=== PATIENT | male | born 1970 | race Caucasian/White ===

== ENCOUNTER 2018-01-26 11:52 | Emergency (ER) | payer MEDICAID ==
[~2018-01-26] VITALS: Ht 175.3 cm; Wt 80.3 kg
[2018-01-26 12:00] VITALS: BP_SYST 140
[2018-01-26] MEDS ORDERED: NACL 0.9% 1,000 ML IV ONE (12:22)
[2018-01-26] MEDS ORDERED: ONDANSETRON HCL 4 MG/2 ML VIAL IVP ONE (12:30)
[2018-01-26] MEDS ORDERED: MORPHINE 4 MG/ML INJ. SYRINGE IVP ONE ×2 (12:30→13:30)
[2018-01-26 12:42] LABS: BILIRUBIN,URINE NEGATIVE (NEGATIVE); BLOOD, URINE NEGATIVE (NEGATIVE); CLARITY/URINE CLEAR (CLEAR); COLOR,URINE YELLOW (YELLOW); GLUCOSE,URINE NEGATIVE (NEGATIVE); KETONES,URINE NEGATIVE (NEGATIVE); LEUKOCYTE ESTERASE ,URINE NEGATIVE (NEGATIVE); NITRITE, URINE NEGATIVE (NEGATIVE); PROTEIN URINE NEGATIVE (NEGATIVE); UROBILINOGEN,URINE 0.2 (0.2-1.0)
[2018-01-26 13:11] LABS: BASOPHILS % (AUTO) 0.4 % (0.0-2.0); EOSINOPHILS # (AUTO) 0.1 K/uL (0.0-0.4); HEMATOCRIT 37.8 % (36-54); HEMOGLOBIN 12.5 g/dL (14.0-18.0); LYMPHOCYTES # (AUTO) 0.9 K/uL (1.0-5.5); LYMPHOCYTES % (AUTO) 17.1 % (20.5-51.5); MEAN CORPUSCULAR HEMOGLOBIN 32 pg (27-31); MEAN CORPUSCULAR HGB CONC 33 % (32-36); MEAN CORPUSCULAR VOLUME 97 fL (79.0-98.0); MONOCYTES # (AUTO) 0.5 K/uL (0.0-1.0); MONOCYTES % (AUTO) 8.7 % (1.7-9.3); NEUTROPHILS # (AUTO) 3.9 K/uL (1.8-7.7); NEUTROPHILS % (AUTO) 72.8 % (40.0-70.0); PLATELET COUNT (AUTO) 279 K/uL (130-430); RED CELL DISTRIBUTION WIDTH 14.3 % (9.0-15.0); WHITE BLOOD COUNT (AUTO) 5.4 K/uL (4.8-10.8)
[2018-01-26 13:19] LABS: CREATININE 0.75 mg/dL (0.55-1.30); POTASSIUM 3.8 mmol/L (3.5-5.1)
[2018-01-26 13:23] LABS: ALBUMIN 3.5 g/dL (3.4-4.8); PROTHROMBIN TIME 9.7 SECS (9.5-12.5); TOTAL BILIRUBIN 0.3 mg/dL (0.0-1.0)
[2018-01-26] MEDS ORDERED: HYDROmorphone 1 MG INJ. 1 MG/ML AMPUL IVP ONE (14:15)
[2018-01-26 14:54] VITALS: BP_SYST 144
== END 2018-01-26 14:53 | disposition home or self-care (01) ==
LOC: SED 11:52
DX: N20.0 Calculus of kidney (principal); Z90.89 Acquired absence of other organs; Z88.6 Allergy status to analgesic agent
CPT/HCPCS: 36415; 71045; 74176; 80053; 81003; 82150; 82550; 83690; 85025; 85610; 85730; 96374; 96375; 96376; 99285; J1170; J2270; J2405; J7030

== ENCOUNTER 2018-01-27 18:21 | Emergency (ER) | payer MEDICAID ==
[~2018-01-27] VITALS: Ht 175.3 cm; Wt 78.0 kg
[2018-01-27 18:26] VITALS: BP_SYST 147
[2018-01-27] MEDS ORDERED: KETAMINE HCL 50 MG/ML SYR IVP ONE (19:00)
[2018-01-27] MEDS ORDERED: fentaNYL CITRATE/PF 100 MCG/2 ML AMP IVP ONE (19:00)
[2018-01-27 20:09] VITALS: BP_SYST 135
== END 2018-01-27 20:09 | disposition home or self-care (01) ==
LOC: SED 18:21
DX: N20.0 Calculus of kidney (principal); G89.29 Other chronic pain; M54.9 Dorsalgia, unspecified; Z87.442 Personal history of urinary calculi; Z88.6 Allergy status to analgesic agent
CPT/HCPCS: 96374; 96375; 99284; J3010

== ENCOUNTER 2018-02-11 18:35 | Emergency (ER) | payer MEDICAID ==
[~2018-02-11] VITALS: Ht 175.3 cm; Wt 78.0 kg
[2018-02-11] MEDS ORDERED: DIPHENHYDRAMINE INJ 50 MG/ML VIAL IM ONE (20:30)
[2018-02-11] MEDS ORDERED: MORPHINE SULFATE 10 MG/ML VIAL IM ONE (20:30)
[2018-02-11] MEDS ORDERED: METOCLOPRAMIDE HCL 10 MG/2 ML VIAL IM ONE (20:30)
[2018-02-11 20:47] VITALS: BP_SYST 135
== END 2018-02-11 20:47 | disposition home or self-care (01) ==
LOC: SED 18:35
DX: R10.32 Left lower quadrant pain (principal); G89.29 Other chronic pain; M54.9 Dorsalgia, unspecified; R30.9 Painful micturition, unspecified; Z87.442 Personal history of urinary calculi; Z88.8 Allergy status to other drugs, medicaments and biological substances
CPT/HCPCS: 96372; 99284; J1200; J2270; J2765

== ENCOUNTER 2018-09-07 22:29 | Emergency (ER) | payer MEDICAID ==
[~2018-09-07] VITALS: Ht 157.5 cm; Wt 95.3 kg
[2018-09-07 22:55] VITALS: BP_SYST 154
[2018-09-07] MEDS ORDERED: NACL 0.9% 1,000 ML IV ONE (23:20)
[2018-09-07] MEDS ORDERED: MORPHINE 4 MG/ML INJ. SYRINGE IVP ONE (23:30)
[2018-09-07] MEDS ORDERED: DIPHENHYDRAMINE INJ 50 MG/ML VIAL IVP ONE (23:30)
[2018-09-07 23:42] LABS: HEMATOCRIT 31.6 % (36-54); HEMOGLOBIN 10.7 g/dL (14.0-18.0); MEAN CORPUSCULAR HEMOGLOBIN 32 pg (27-31); MEAN CORPUSCULAR HGB CONC 34 % (32-36); MEAN CORPUSCULAR VOLUME 94 fL (79.0-98.0); PLATELET COUNT (AUTO) 255 K/uL (130-430); RED BLOOD CELL COUNT(AUTO) 3.36 MIL/uL (4.2-6.2); RED CELL DISTRIBUTION WIDTH 15.9 % (9.0-15.0); WHITE BLOOD COUNT (AUTO) 6.4 K/uL (4.8-10.8)
[2018-09-07 23:44] LABS: EOSINOPHILS % (AUTO) 1.7 % (0.0-4.0); LYMPHOCYTES % (AUTO) 20.5 % (20.5-51.5); MONOCYTES % (AUTO) 12.3 % (1.7-9.3); NEUTROPHILS % (AUTO) 64.9 % (40.0-70.0)
[2018-09-07 23:45] LABS: BASOPHILS % (AUTO) 0.6 % (0.0-2.0); EOSINOPHILS # (AUTO) 0.1 K/uL (0.0-0.4); LYMPHOCYTES # (AUTO) 1.3 K/uL (1.0-5.5); MONOCYTES # (AUTO) 0.8 K/uL (0.0-1.0); NEUTROPHILS # (AUTO) 4.1 K/uL (1.8-7.7)
[2018-09-07 23:49] LABS: CALCIUM 8.4 mg/dL (8.4-11.0); CREATININE 0.85 mg/dL (0.55-1.30); POTASSIUM 3.8 mmol/L (3.5-5.1)
[2018-09-08] LABS: TOTAL BILIRUBIN 0.1 mg/dL (0.0-1.0)
[2018-09-08] MEDS ORDERED: IOHEXOL 100 ML IV ONE (00:13)
[2018-09-08] MEDS ORDERED: DIPHENHYDRAMINE INJ 50 MG/ML VIAL IVP ONE (00:45)
[2018-09-08] MEDS ORDERED: MORPHINE 4 MG/ML INJ. SYRINGE IVP ONE (00:45)
[2018-09-08 01:06] LABS: BILIRUBIN,URINE NEGATIVE (NEGATIVE); BLOOD, URINE NEGATIVE (NEGATIVE); CLARITY/URINE SL HAZY (CLEAR); COLOR,URINE YELLOW (YELLOW); GLUCOSE,URINE NEGATIVE (NEGATIVE); KETONES,URINE NEGATIVE (NEGATIVE); LEUKOCYTE ESTERASE ,URINE NEGATIVE (NEGATIVE); NITRITE, URINE NEGATIVE (NEGATIVE); PH,URINE 6.5 (5.0-8.0); PROTEIN URINE NEGATIVE (NEGATIVE); UROBILINOGEN,URINE 0.2 (0.2-1.0)
[2018-09-08 01:10] VITALS: BP_SYST 136
== END 2018-09-08 01:10 | disposition home or self-care (01) ==
LOC: SED 22:29
DX: S38.1XXA Crushing injury of abdomen, lower back, and pelvis, initial encounter (principal); Z88.6 Allergy status to analgesic agent; Z87.442 Personal history of urinary calculi; W01.198A Fall on same level from slipping, tripping and stumbling with subsequent striking against other object, initial encounter; Y93.89 Activity, other specified; Y92.89 Other specified places as the place of occurrence of the external cause; Y99.8 Other external cause status
CPT/HCPCS: 36415; 74177; 80053; 81003; 85025; 96361; 96374; 96375; 96376; 99284; J1200 ×2; J2270 ×2; J7030; Q9967

== ENCOUNTER 2019-06-07 05:48 | Emergency (ER) | payer MEDICAID ==
[~2019-06-07] VITALS: Ht 175.3 cm; Wt 81.2 kg
[2019-06-07 05:55] VITALS: BP_SYST 129
--- NOTE | 2019-06-07 06:00 | NUR ---
Patient to ER bed 7 to gown for evaluation. Side rails up. Report given to Frankie SOFIA.
--- NOTE | 2019-06-07 06:05 | NUR ---
Pt presents to ER with c/o left flank pain that radiates to left abdomen. Pt is A&Ox4. Pt states pain began last night. Pt states pain is 8/10. Pt states pain with urination and states "I feel like I can't empty my bladder fully." Pt states he is nausous. No vomiting, fever, swelling, SOB, chest pain noted.
--- NOTE | 2019-06-07 06:12 | NUR ---
ER Dr. Yadav at bedside examining patient.
[2019-06-07] MEDS ORDERED: NACL 0.9% 1,000 ML IV ONE (06:21)
[2019-06-07] MEDS ORDERED: MORPHINE 4 MG/ML INJ. SYRINGE IVP ONE (07:00)
[2019-06-07] MEDS ORDERED: ONDANSETRON HCL 4 MG/2 ML VIAL IVP ONE (07:00)
[2019-06-07 07:04] LABS: BASOPHILS % (AUTO) 0.2 % (0.0-2.0); EOSINOPHILS # (AUTO) 0.1 K/uL (0.0-0.4); EOSINOPHILS % (AUTO) 1.2 % (0.0-4.0); HEMATOCRIT 36.2 % (36-54); HEMOGLOBIN 12.4 g/dL (14.0-18.0); LYMPHOCYTES % (AUTO) 11.1 % (20.5-51.5); MEAN CORPUSCULAR HEMOGLOBIN 32 pg (27-31); MEAN CORPUSCULAR HGB CONC 34 % (32-36); MEAN CORPUSCULAR VOLUME 95 fL (79.0-98.0); MONOCYTES # (AUTO) 0.5 K/uL (0.0-1.0); MONOCYTES % (AUTO) 5.4 % (1.7-9.3); NEUTROPHILS # (AUTO) 7.5 K/uL (1.8-7.7); NEUTROPHILS % (AUTO) 82.1 % (40.0-70.0); PLATELET COUNT (AUTO) 178 K/uL (130-430); RED BLOOD CELL COUNT(AUTO) 3.83 MIL/uL (4.2-6.2); RED CELL DISTRIBUTION WIDTH 16.1 % (9.0-15.0); WHITE BLOOD COUNT (AUTO) 9.1 K/uL (4.8-10.8)
--- NOTE | 2019-06-07 07:15 | NUR ---
Pt off floor to radiology in wheelchair in stable condition.
--- NOTE | 2019-06-07 07:15 | NUR ---
Report given to KIMBERLYN Ospina.
[2019-06-07 07:16] LABS: CALCIUM 8.5 mg/dL (8.4-11.0); CREATININE 0.58 mg/dL (0.55-1.30); POTASSIUM 3.7 mmol/L (3.5-5.1)
--- NOTE | 2019-06-07 07:16 | NUR ---
Report received from KIMBERLYN Prince and KIMBERLYN Glaser.
[2019-06-07 07:18] LABS: INR 0.9 (0.80-1.20); PROTHROMBIN TIME 9.4 SECS (9.5-12.5)
--- NOTE | 2019-06-07 07:19 | NUR ---
Patient returned from CT scan via wheelchair.
[2019-06-07 07:22] LABS: ALBUMIN 3.7 g/dL (3.4-4.8); TOTAL BILIRUBIN 0.3 mg/dL (0.0-1.0)
--- NOTE | 2019-06-07 08:08 | NUR ---
MD at bedside discussing plan of care. Patient and asked for pain medication. Will follow up regarding orders.
[2019-06-07] MEDS ORDERED: MORPHINE 2 MG/ML INJ. SYRINGE IVP ONE (08:15)
--- NOTE | 2019-06-07 08:18 | NUR ---
Patient given pain medication as ordered, tolerated well. Will continue to follow up and monitor.
--- NOTE | 2019-06-07 08:28 | NUR ---
Checked patients room, patient had left with all belongings, no longer at bedside. Checked all restrooms, and ED, patient not within ED. Patient eloped after self removing IV access. Patient did not inform any staff at time of leaving.
== END 2019-06-07 08:28 | disposition left against medical advice (07) ==
LOC: SED 05:48
DX: K59.00 Constipation, unspecified (principal); R10.32 Left lower quadrant pain; M54.5 Low back pain; Z76.5 Malingerer [conscious simulation]; Z87.442 Personal history of urinary calculi; Z88.8 Allergy status to other drugs, medicaments and biological substances
CPT/HCPCS: 36415; 74176; 80053; 83690; 85025; 85610; 96374; 96375; 99284; J2270 ×2; J2405; J7030

== ENCOUNTER 2023-03-09 02:20 | Emergency (ER) | payer MEDICAID ==
[~2023-03-09] VITALS: Ht 175.3 cm; Wt 74.8 kg
[2023-03-09 02:28] VITALS: BP_SYST 128; PULSE 74; RESP 19; TEMP 97.2; O2SAT 99
[2023-03-09] MEDS ORDERED: NACL 0.9% 1,000 ML IV ONE (02:45)
[2023-03-09] MEDS ORDERED: ONDANSETRON HCL 4 MG/2 ML VIAL IVP ONE (02:45)
[2023-03-09] MEDS ORDERED: MORPHINE 4 MG INJ. 4 MG/ML VIAL IVP ONE (02:45)
[2023-03-09 03:15] VITALS: BP_SYST 128; PULSE 74; RESP 19; TEMP 97.2; O2SAT 99
[2023-03-09 03:19] LABS: BASOPHILS % (AUTO) 0.5 % (0.0-2.0); EOSINOPHILS # (AUTO) 0.2 K/uL (0.0-0.4); EOSINOPHILS % (AUTO) 2.1 % (0.0-4.0); HEMATOCRIT 40.5 % (36-54); HEMOGLOBIN 13.1 g/dL (14.0-18.0); LYMPHOCYTES # (AUTO) 1.4 K/uL (1.0-5.5); LYMPHOCYTES % (AUTO) 16.6 % (20.5-51.5); MEAN CORPUSCULAR HEMOGLOBIN 31 pg (27-31); MEAN CORPUSCULAR HGB CONC 32 % (32-36); MEAN CORPUSCULAR VOLUME 97 fL (79.0-98.0); MONOCYTES # (AUTO) 0.7 K/uL (0.0-1.0); MONOCYTES % (AUTO) 8.1 % (1.7-9.3); NEUTROPHILS # (AUTO) 5.9 K/uL (1.8-7.7); NEUTROPHILS % (AUTO) 72.7 % (40.0-70.0); PLATELET COUNT (AUTO) 189 K/uL (130-430); RED BLOOD CELL COUNT(AUTO) 4.18 MIL/uL (4.2-6.2); RED CELL DISTRIBUTION WIDTH 15.6 % (9.0-15.0); WHITE BLOOD COUNT (AUTO) 8.1 K/uL (4.8-10.8)
[2023-03-09 03:34] LABS: ALBUMIN 3.3 g/dL (3.4-4.8); CREATININE 0.76 mg/dL (0.55-1.30); POTASSIUM 3.7 mmol/L (3.5-5.1); TOTAL BILIRUBIN 0.3 mg/dL (0.0-1.0); TOTAL PROTEIN, SERUM 6.7 g/dL (6.4-8.3)
== END 2023-03-09 03:39 | disposition left against medical advice (07) ==
LOC: SED 02:20
DX: R10.9 Unspecified abdominal pain (principal); R39.198 Other difficulties with micturition; R11.0 Nausea; Z88.6 Allergy status to analgesic agent; Z79.899 Other long term (current) drug therapy
CPT/HCPCS: 80053; 83690; 85025; 36415; 76376; 74176; 99285; 96374; 96375; J2405; J2270